=== PATIENT | female | born 1945 | race Caucasian/White ===

== ENCOUNTER 2019-03-17 14:00 | Inpatient (IN) ==
[2019-03-17 16:58] LABS: Appearance,Urine HAZY; Bacteria,Urine 0 /hpf (0); Bilirubin,Urine NEG (NEG); Color,Urine YELLOW; Glucose,Urine (UA) NEGATIVE (NEG); Ketones,Urine NEG (NEG); Leukocyte Esterase,Urine 250 /uL (NEG); Mucus,Urine FEW /hpf (0); Nitrate,Urine NEG (NEG); Protein,Urine NEG (NEG); Specific Gravity,Urine 1.018 (1.000-1.035); Urine Blood >=1.0 mg/dL (<0.03); Urine RBC > 182 /hpf (0-1); Urine Squamous Epithelial Cell 4 /hpf (0-4); Urine WBC 2 /hpf (0-4); Urobilinogen,Urine NEG (NEG)
[2019-03-17 17:14] LABS: Basophils # (Auto) 0 K/mcL (0.0-0.3); Basophils % (Auto) 0.3 % (0.0-2.0); Eosinophils # (Auto) 0.1 K/mcL (0.0-0.7); Eosinophils % (Auto) 1.7 % (0.0-7.0); Granulocytes % (Auto) 70.6 % (38.0-78.0); Hematocrit 39.4 % (36.0-48.0); Hemoglobin 13.2 g/dL (12.0-15.0); Lymphocytes # (Auto) 1.4 K/mcL (1.5-4.8); Lymphocytes % (Auto) 16.9 % (15.5-49.0); Mean Cell Volume 94.3 fL (80.0-100.0); Mean Corpuscular HGB Conc 33.5 g/dL (31.0-36.0); Mean Platelet Volume 7.6 fL (7.4-10.4); Monocytes # (Auto) 0.9 K/mcL (0.1-0.9); Monocytes % (Auto) 10.5 % (1.0-12.0); Platelet Count 273 K/mcL (140-440); RBC 4.18 M/mcL (4.00-5.20); Red Cell Distribution Width 14.9 % (11.5-14.5); WBC 8.4 K/mcL (4.5-11.0)
[2019-03-17 17:27] LABS: Blood Urea Nitrogen 16 mg/dl (8-23); Calcium 9.1 mg/dl (8.6-10.4); Carbon Dioxide 25 mmol/L (22-30); Chloride 97 mmol/L (96-108); Glomerular Filtration Rate 87; Glucose 101 mg/dL (70-105)
[2019-03-22] MEDS ORDERED: IPRATROPIUM/ALBUTEROL 3 ML AMPUL.NEB NEB PRN (14:27)
[2019-03-22] MEDS ORDERED: SCOPOLAMINE 1 PATCH PATCH TOPICAL PRN (14:27)
[2019-03-23] MEDS ORDERED: PREGABALIN 75 MG CAPSULE PO SCH (06:00)
[2019-03-23] MEDS ORDERED: oxyCODONE 10 MG TAB.ER.12H PO SCH (06:00)
[2019-03-23] MEDS ORDERED: CELECOXIB 200 MG CAPSULE PO SCH (06:00)
[2019-03-23] MEDS ORDERED: ceFAZolin 2 GM in DEXTROSE 5% IN WATER 50 ML IV SCH (06:00)
[2019-03-23 09:45] LABS: Appearance,Urine CLEAR; Bacteria,Urine 0 /hpf (0); Bilirubin,Urine NEG (NEG); Color,Urine YELLOW; Culture Indicated,Urine NO; Glucose,Urine (UA) NEGATIVE (NEG); Ketones,Urine 5/TR mg/dL (NEG); Leukocyte Esterase,Urine 500 /uL (NEG); Mucus,Urine FEW /hpf (0); Nitrate,Urine NEG (NEG); Protein,Urine NEG (NEG); Specific Gravity,Urine 1.018 (1.000-1.035); Urine Blood NEG mg/dL (<0.03); Urine Hyaline Cast 19 /lpf (0-2); Urine RBC 7 /hpf (0-1); Urine Squamous Epithelial Cell 13 /hpf (0-4); Urine Transitional Epi Cells 1 /hpf (0-2); Urine WBC 2 /hpf (0-4); Urobilinogen,Urine NEG (NEG)
[2019-03-23] MEDS ORDERED: GLYCOPYRROLATE 0.2 MG/ML VIAL IV ONE (12:23)
[2019-03-23] MEDS ORDERED: ePHEDrine 50 MG/ML AMPUL IV ONE (12:23)
[2019-03-23] MEDS ORDERED: PROPOFOL 200 MG/20 ML VIAL IV ONE (12:23)
[2019-03-23] MEDS ORDERED: PHENYLEPHRINE 10 MG/ML VIAL IV ONE (12:23)
[2019-03-23] MEDS ORDERED: LIDOCAINE HCL/PF 100 MG/5 ML SYRINGE IV ONE (12:23)
[2019-03-23] MEDS ORDERED: HYDROmorphone 2 MG/ML VIAL IV ONE (12:23)
[2019-03-23] MEDS ORDERED: fentaNYL 250 MCG/5 ML VIAL IV ONE (12:23)
[2019-03-23] MEDS ORDERED: TRANEXAMIC ACID 1,000 MG/10 ML VIAL IV ONE (12:23)
[2019-03-23] MEDS ORDERED: DEXAMETHASONE 10 MG/ML VIAL IV ONE (12:23)
[2019-03-23] MEDS ORDERED: MIDAZOLAM 5 MG/5 ML VIAL IV ONE (12:23)
[2019-03-23] MEDS ORDERED: ONDANSETRON 4 MG/2 ML VIAL IV ONE (12:23)
[2019-03-23] MEDS ORDERED: IPRATROPIUM/ALBUTEROL 3 ML AMPUL.NEB NEB PRN (13:23)
[2019-03-23] MEDS ORDERED: HYDROmorphone 2 MG/ML VIAL IV PRN (13:23)
[2019-03-23] MEDS ORDERED: fentaNYL 100 MCG/2 ML VIAL IV PRN (13:23)
[2019-03-23] MEDS ORDERED: METOPROLOL TARTRATE 5 MG/5 ML VIAL IV PRN (13:23)
[2019-03-23] MEDS ORDERED: NALOXONE HCL 0.4 MG/ML VIAL IV PRN (13:23)
[2019-03-23] MEDS ORDERED: ACETAMINOPHEN 1,000 MG/100 ML BOTTLE IV ONE (13:23)
[2019-03-23] MEDS ORDERED: MEPERIDINE 25 MG/ML SYRINGE IV PRN (13:23)
[2019-03-23] MEDS ORDERED: diphenhydrAMINE 50 MG/ML VIAL IV PRN (13:23)
[2019-03-23] MEDS ORDERED: PROMETHAZINE 25 MG/ML VIAL IV PRN (13:23)
[2019-03-23] MEDS ORDERED: ATROPINE SULFATE 0.4 MG/ML VIAL IV PRN (13:23)
[2019-03-23] MEDS ORDERED: FLUMAZENIL 0.1 MG/ML ML IV PRN (13:23)
[2019-03-23] MEDS ORDERED: METHOCARBAMOL 1,000 MG/10 ML VIAL IV PRN (13:23)
[2019-03-23] MEDS ORDERED: ePHEDrine 50 MG/ML AMPUL IV PRN (13:23)
[2019-03-23] MEDS ORDERED: ONDANSETRON 4 MG/2 ML VIAL IV PRN ×2 (13:23→14:07)
[2019-03-23] MEDS ORDERED: MAGNESIUM HYDROXIDE 30 ML ORAL.SUSP PO PRN (14:07)
[2019-03-23] MEDS ORDERED: BISACODYL 10 MG SUPP.RECT PR PRN (14:07)
[2019-03-23] MEDS ORDERED: KETOROLAC 15 MG/ML VIAL IV PRN (14:07)
[2019-03-23] MEDS ORDERED: BENZOCAINE/MENTHOL 1 LOZENGE PO PRN (14:07)
[2019-03-23] MEDS ORDERED: FLEETS ADULT ENEMA PR PRN (14:07)
[2019-03-23] MEDS ORDERED: TRANEXAMIC ACID 1,000 MG/10 ML VIAL IV SCH (14:07)
[2019-03-23] MEDS ORDERED: POLYETHYLENE GLYCOL 3350 17 GM PACKET PO PRN (14:07)
--- NOTE | 2019-03-23 14:07 | Brief Operative Note ---
Date of procedure: 03/23/19 Pre-op diagnosis: Left irrepairable RTC tear, arthritis Post-op diagnosis: same Procedure: Left reverse total shoulder arthroplasty Grafts/Implants: Yes (Tornier 5 aequalis stem, std tray, +9 insert, 36 +2 eccentric glenosphere) Anesthesia: GETA Findings: absent rotator cuff Complications: none Surgeon: Torrey Ray Geospatial Extractor Analysis: Andre Zepeda Estimated blood loss (cc): 250 Specimens Removed/Pathology: none sent Condition: stable Disposition: PACU
[2019-03-23] MEDS ORDERED: HYDROCHLOROTHIAZIDE 12.5 MG CAPSULE PO PRN (14:10)
[2019-03-23] MEDS ORDERED: BUPIVACAINE 0.5% 50 ML VIAL IJ ONE (14:12)
--- NOTE | 2019-03-23 15:45 | XRay Report ---
CLINICAL INFORMATION: Post-Op Total Shoulder COMPARISON: None. FINDINGS: Total shoulder prostheses is anatomically aligned. No osseous abnormalities. Soft tissue swelling seen at the expected IMPRESSION: Negative Interpreted and Authenticated by: Shaheen Degroot 03/23/19
[2019-03-23] MEDS: 0.9 % SODIUM CHLORIDE 1,000 ML IV SCH (15:46)
[2019-03-23] MEDS: HYDROmorphone 2 MG/ML VIAL IV PRN ×2 (15:58→20:39)
[2019-03-23] MEDS: oxyCODONE/APAP 5/325MG TABLET PO PRN ×2 (17:32→23:57)
[2019-03-23] MEDS: ceFAZolin 1 GM VIAL IV SCH (20:38)
[2019-03-23] MEDS: DOCUSATE SODIUM 100 MG CAPSULE PO SCH (20:39)
[2019-03-23] MEDS: 0.9 % SODIUM CHLORIDE 10 ML SYRINGE IV SCH (20:39)
[2019-03-23] MEDS ORDERED: SENNOSIDES 1 TABLET PO SCH (21:00)
[2019-03-23] MEDS: CHLORHEXIDINE GLUCONATE 1 ML ORAL.SOL SSP SCH (22:11)
[2019-03-24] MEDS: 0.9 % SODIUM CHLORIDE 10 ML SYRINGE IV SCH (05:18)
[2019-03-24] MEDS: ceFAZolin 1 GM VIAL IV SCH (05:24)
[2019-03-24] MEDS: oxyCODONE/APAP 5/325MG TABLET PO PRN ×2 (05:25→09:07)
[2019-03-24] MEDS: 0.9 % SODIUM CHLORIDE 1,000 ML IV SCH (05:39)
[2019-03-24 06:48] LABS: Hematocrit 36.3 % (36.0-48.0); Hemoglobin 12.1 g/dL (12.0-15.0)
--- NOTE | 2019-03-24 07:43 | Orthopedic Progress Note ---
Subjective Patient information: Note initiated : 03/24/19 at 7:41 am Service Date, if different from initiated Date: [] Patient: Tonie Little 73 y/o F admitted on 03/23/19 for Left Reverse Total Shoulder Arthroplasty. Chief Complaint: [] Principal diagnosis: s/p left reverse total shoulder arthroplasty Interval history: Pt is POD #1 following Left reverse total shoulder arthroplasty with Dr. Ray on 03/23/19. Pt is doing well this AM. Has been ambulating well with PT. Denies fevers/chills, N/V, CP, SOB, calf tenderness. Admits to some pain in her left shoulderd. Her pain is managed. Pertinent ROS: Negative except per HPI. Objective Vital signs: Vital Signs Temp Pulse Pulse Resp BP Pulse Ox 03/24/19 07:29 97.8 F 79 18 110/71 96 03/24/19 04:00 97.9 F 80 18 122/83 03/24/19 02:00 81 03/23/19 23:34 98.2 F 80 16 108/69 97 03/23/19 20:00 80 03/23/19 19:59 98.7 F 80 18 107/70 98 03/23/19 18:07 80 03/23/19 17:03 85 129/73 95 03/23/19 16:47 84 136/66 97 03/23/19 16:31 83 141/97 97 03/23/19 16:17 85 122/80 99 03/23/19 16:03 83 20 135/83 99 03/23/19 15:27 98.7 F 78 13 149/86 100 03/23/19 15:12 83 17 109/84 100 03/23/19 14:57 97.1 F 81 15 145/88 100 03/23/19 14:52 83 16 144/77 100 03/23/19 14:47 73 17 137/91 100 03/23/19 14:42 97.1 F 71 16 115/66 99 03/23/19 08:27 97.0 F 76 18 136/84 98 Intake and Output 03/23/19 03/24/19 03/24/19 21:59 05:59 13:59 Intake Total 540 400 Output Total 250 1400 Balance 290 -1000 Intake: IV 100 Oral 440 400 Output: Void Amount 250 1400 Other: Meal Dinner Percent of Meal Consumed 100% Feeding Ability Independent Urine Appearance Clear Urine Color Straw Pale Bright Yellow Urine Odor Normal Normal Weight 178 lb Intake & Output: Intake & Output 03/23/19 03/24/19 03/24/19 21:59 05:59 13:59 Intake Total 540 400 Output Total 250 1400 Balance 290 -1000 Weight 178 lb Intake: IV 100 Oral 440 400 Output: Void Amount 250 1400 Other: Meal Dinner Percent of Meal Consumed 100% Feeding Ability Independent Urine Appearance Clear Urine Color Straw Pale Bright Yellow Urine Odor Normal Normal Incision: Yes clean and dry Dressing: Yes clean, Yes dry, Yes intact Weight bearing status: non (with Left UE) Neurological exam IM: Yes alert, Yes oriented X3, Yes neurovascular intact Extremities exam IM: No calf tenderness, Yes normal capillary refill, Yes neurovascular intact - Labs CBC & BMP: 03/24/19 04:50 03/17/19 14:54 Labs: 03/24/19 03/17/19 04:50 14:54 Hgb 12.1 13.2 Hct 36.3 39.4 Assessment and Plan (1) S/p reverse total shoulder arthroplasty Status: Acute - Narrative A/P Narrative: Pt is POD #1 following Left reverse total shoulder arthroplasty with Dr. Ray on 03/23/19. -Continue pain medications. -Continue DVT prophylaxis. -plan to DC home today.
--- NOTE | 2019-03-24 07:51 | Discharge Summary ---
Providers - Providers Patient information: Note initiated : 03/24/19 at 7:49 am Service Date, if different from initiated Date: [] Patient: Tonie Little 73 y/o F admitted on 03/23/19 for Left Reverse Total Shoulder Arthroplasty. Chief Complaint: left shoulder pain. Date of admission: 03/23/19 Discharge date: 03/24/19 Hospitalization Hospital Course: Pt is a 73 yo female POD #1 following Left reverse total shoulder arthroplasty with Dr. Ray on 03/23/19. Overall hospital course has been unremarkable. Vitals and labs remain stable. Pt is afebrile. Has been up ambulating with PT. Denies SOB, CP, N/V, calf tenderness, fevers/chills. Discharge diagnosis: s/p left reverse total shoulder arthroplasty Exam - Exam Incision healing: Yes Incision draining: No Clean and dry: Yes (Pt A/o x 3. L shoulder: dressing clean/dry, no drainage. NV intact distally) Weight bearing status: none (with Left UE.) Ortho Discharge - TSA - Patient Instructions Diet: Regular Diet Activity: other (NWB with left UE in sling.) Total Shoulder Protocol: Leave immobilizer in place except for bathing and ROM. Abduction pillow. Continue to wear sling until seen by physician. Codman Pendulum : These exercises use momentum produced by your body to move your shoulder joint. Bend your knees and shift your weight to your front leg, then back, allowing your arm to swing in the same directions. Using the same technique, alternately shift your weight between your right and left legs, allowing your arm to swing from side to side. These exercises are also performed in counterclockwise and clockwise circular motions. Typically these exercises are performed several times per day, for a set number repetitions or minutes, such as 20 times in a row or 5 minutes at a time. Dressing Care: Aquacel Ag - leave on for 5 days Additional Dressing Instructions: Place aquacel before discharge. Keep dressing clean and dry. - Problem Maintenance (1) S/p reverse total shoulder arthroplasty Status: Acute - Follow Up Plan Follow Up Appointments: Andre Zepeda PA-C [Physician Straight Edger] - 04/07/19 1:00 pm Disposition: Home, Self-Care Prognosis: Good Rehab Potential: Good Overall status at discharge: patient is progressing back to baseline - Orders For Discharge Prescriptions: Aspirin 325 mg PO DAILY 14 Days #14 tab Docusate Sodium [Colace] 100 mg PO DAILY #60 cap HYDROcodone/ACETAMINOPHEN [[place] 10-325 Tablet] 1 each PO Q4-6HP PRN #60 tab PRN Reason: Pain Additional Discharge Orders: Physical Therapy at Discharge - [facility] Location: None Selected Pending Studies Resuscitation Status Full Code Diet Regular Diet Start ThuMar 23 1409 Chlorhexidine Gluconate (Peridex) 15 ml SSP BID@0730,2100 [facility] Last Admin: 03/23/19 22:11 Dose: 15 ml Documented by: ANNALISE Docusate Sodium (Colace) 100 mg PO BID [facility] Last Admin: 03/23/19 20:39 Dose: 100 mg Documented by: ANNALISE Hydromorphone HCl (Dilaudid) 0 mg IV Q2HP PRN PRN Reason: PAIN LEVEL > 6 Last Admin: 03/23/19 20:39 Dose: 1 mg Documented by: Admin: 03/23/19 15:58 Dose: 0.5 mg Documented by: JASMIN Sodium Chloride (Sodium Chloride 0.9%) 1,000 mls @ 75 mls/hr IV .[id number] [facility] Last Admin: 03/24/19 05:39 Dose: Not Given Documented by: Admin: 03/23/19 15:46 Dose: 75 mls/hr Documented by: JASMIN Ketorolac Tromethamine (Toradol) 15 mg IV Q6HP PRN PRN Reason: Pain Stop: 03/25/19 14:10 Last Admin: 03/23/19 16:17 Dose: 15 mg Documented by: JASMIN Oxycodone/Acetaminophen (Percocet 5-325 Mg) 0 tab PO Q4HP PRN PRN Reason: PAIN LEVEL 3-6 Last Admin: 03/24/19 05:25 Dose: 2 tab Documented by: Admin: 03/23/19 23:57 Dose: 2 tab Documented by: Admin: 03/23/19 17:32 Dose: 2 tab Documented by: JASMIN Senna (Senokot) 2 tab PO HS [facility] Last Admin: 03/23/19 20:38 Dose: 2 tab Documented by: ANNALISE Sodium Chloride (Saline Flush) 10 ml IV Q8 JESSICA Last Admin: 03/24/19 05:18 Dose: 10 ml Documented by: Admin: 03/23/19 20:39 Dose: Not Given Documented by: ANNALISE Shift Summary 03/24/19 05:18 Shift Summary by Marta Gayle The patient is alert and oriented times four, able to make her needs known, currently SL to her right hand as of 0500 with the exception of ABO. Up to void in the restroom via commode over toilet with 1 person SBA, left arm in a shoulder immobilizer and dressing is CDI, she sustained a skin tear from her IV line at change of shift - steri strips in place and she keeps removing her bandage covering the site. CMS intact, trace edema to her left hand. VS WNL, no nausea, regular diet, medicated with 1 mg Dilaudid at HS and pain well managed throughout the shift. Initialized on 03/24/19 05:18 - END OF NOTE
[2019-03-24] MEDS ORDERED: CELECOXIB 200 MG CAPSULE PO SCH (09:00)
[2019-03-24] MEDS ORDERED: DOCUSATE SODIUM 100 MG CAPSULE PO SCH (09:00)
[2019-03-24] MEDS ORDERED: CITALOPRAM 20 MG TABLET PO SCH (09:00)
[2019-03-24] MEDS ORDERED: MULTIVIT,THER IRON,CA,FA & MIN 1 TABLET PO SCH (09:00)
[2019-03-24] MEDS: DOCUSATE SODIUM 100 MG CAPSULE PO SCH (09:07)
[2019-03-24] MEDS: CHLORHEXIDINE GLUCONATE 1 ML ORAL.SOL SSP SCH (09:11)
--- NOTE | 2019-03-24 09:54 | Operative Note ---
DATE OF OPERATION: 03/23/2019 PREOPERATIVE DIAGNOSIS: Left shoulder rotator cuff tear with developing osteoarthritis. POSTOPERATIVE DIAGNOSIS: Left shoulder rotator cuff tear with developing osteoarthritis. PROCEDURE PERFORMED: Left reverse total shoulder arthroplasty placing a Tornier Aequalis Flex size 5 humeral stem, a standard offset humeral tray with a +9 polyethylene bearing included on a mini baseplate with a 2 mm eccentric glenosphere. SURGEON: Torrey Ray MD GARMENT ALTERATION EXAMINER: Buster Mcgarry PA-C. This provider's expertise and technical skill were required throughout the case. The PA assisted with preoperative coordination, intraoperative retraction, wound closure, dressing and splint application, as well as postoperative documentation and care coordination. SPECIMENS: Bone cuts, which were discarded. ESTIMATED BLOOD LOSS: 203 mL COMPLICATIONS: None. POSTOPERATIVE CONDITION: Stable. INDICATIONS FOR SURGERY: This is a 73-year-old female who I believe had longstanding shoulder pain and weakness. MRI showed it could be irreparable rotator cuff tear, chronic. FINDINGS AT SURGERY: Large rotator cuff tear that appeared chronic with developing osteoarthritis ____ instability. PROCEDURE IN DETAIL: The patient had been seen preoperatively and informed consent had been obtained after discussion of risks and benefits of surgery. Risks included but are not limited to bleeding, possibly requiring a transfusion; infection, possibly requiring implant removal and prolonged IV antibiotics; damage to nerves or blood vessels or other surrounding structures; anesthetic risks; incomplete or no resolution of symptoms; ____ possibility of needing further surgery. She understood and wished to proceed. Correct operative site was marked and she was taken to the operating room and general anesthesia induced. She was carefully positioned in a beach chair position and pressure points carefully padded. The left shoulder and upper extremity were carefully prepped and draped in a sterile fashion and . I then reviewed axilla and a second prep ____ was used to over the remaining skin surfaces with Ioban. A standard deltoid pectoral incision was made with a scalpel through skin and subcutaneous tissue. Hemostasis was obtained with Bovie cautery. Careful blunt dissection was taken down onto the and this was dissected lateral. A deltoid ___ was irrigated and finger dissection was used to develop the subdeltoid space and a ____ deltoid retractor placed. We palpated the bicipital groove and opened this up with a scalpel. Biceps tendon was absent. ___ ____ was suctioned off ____ clear osteotome. We reviewed ___ ____ through the scapula. It was partially torn away from the bone fragment. We placed a traction stitch around ___ and dislocated the humeral head ____ ___ ___ ___ __ inferiorly. Entry hole was made and a cut guide used to make a humeral ____ cut and then with a canal awl ___ canal entry and ___ found this and went up to a size 6 poly ___ before we got appropriate fixation. We then started broaching and broached up to size 5, which seated just below our osteotomy. A calcar planer was used to smooth and then a ____ protector was placed ____ ___. We then subluxed the humerus posteriorly and exposed the glenoid. The labrum was quite and torn. We excised this circumferentially to carefully release capsule inferiorly, keeping the Bovie directly on bone and protecting the ___ ___ . ____ ___ ___ A guide was used to place our guide pin with 10 degrees cephalad tilt. We then used a reamer to ream down in the cancellous bone on the inferior half ____ . ___ ___ completely. We then used the central peg reamer over top of this ____. We then drilled out the central ____ ___. We went ahead and opened a mini baseplate with an 86.5 screw. We irrigated the joint with IrriSept. After a minute we pulse lavaged with saline. We then advanced the base plate and screw ___ over the end point. We then drilled and placed superior and inferior locking screws. We tried to place an ____ screw; however, it was so short it was not worth placing one and we placed a nonlocking screw. We then saved a 2 mm offset 36 glenosphere, which we irrigated with IrriSept and after a minute pulse lavaged with saline. We then placed a 2 mm inferior offset inferiorly. We carefully impacted the glenosphere and then tightened it down with the screw. We then exposed the proximal humerus and trialed with a +6 and a standard tray to reduce further . I went up to a size 9. This reduced with more difficulty . We opened a 5 stem with a standard tray and a +8 insert ____ on the backtable. The trial was then removed and canal ___ IrriSept, after a minute pulse lavaged with saline and . We reduced the shoulder with good tension and stability ____ and . We did another IrriSept irrigation, after a minute pulse lavaged and two drill holes were made in the bicipital groove and the two FiberWire a [id number] used through the drill holes around the lesser tuberosity fragment ___ superiorly, [id number] stitch over top of the subscapularis which we repaired and tied the knot to ____ scalpel. We then cut suture ends and again and used the traction stitch through bone to further reinforce the subscap repair. We then irrigated with IrriSept, after a minute pulse lavaged with saline and a #1 Vicryl running stitch was used to close the deltopectoral interval. We irrigated with IrriSept a final time and after a minute pulse lavaged, then 2-0 Monocryl for subcutaneous and kayleen for skin. Xeroform sterile dressings were applied. The arm was placed in a Donjoy abductor immobilizer and patient was then awakened, extubated, and transferred to recovery in stable condition. [email or web address]:[email or web address] Job ID: [id number] Doc ID: [id number] Torrey Ray MD
== END 2019-03-24 11:40 | disposition home or self-care (01) | DRG 483 ==
LOC: MEDSUR 03-23 08:02
PROVIDERS: ADMIT Orthopaedic Surgery; ATTEND Orthopaedic Surgery